=== PATIENT | female | born 1970 | race Two or more races ===

== ENCOUNTER 2016-08-10 13:10 | Emergency (ER) | payer OTHER, MEDICAID ==
--- NOTE | 2016-08-10 13:20 | UCPHY ---
H & P Time Seen by Provider: 08/10/16 13:20 Patient Type: Established HPI/ROS: HPI: 46-year-old female presents to urgent care with chief concern runny nose, cough, heaviness in her chest. Symptoms onset 3-4 days ago. Denies fever, chills, shortness of breath, abdominal pain, nausea, vomiting, diarrhea. No aggravating or alleviating factors. She is an asthmatic who is a current daily smoker. Mother has a history of heart disease. ROS:10 point review of systems is negative other than as stated in HPI Past Medical/Surgical History: Asthma, stomach band, current daily smoker Smoking Status: Current some day smoker Physical Exam: Vital signs stable, reviewed by me General: Awake, alert, calm, cooperative. No acute distress. Head: Atraumatic. EENT: Conjuctiva mildly injected. TMs intact, without redness or bulging. Nasal mucosa is erythematous with moderate clear discharge. Pharynx mildly erythematous. Uvula midline. No tonsillar abscess or exudates. No frontal or maxillary tenderness to percussion. Respiratory: Breathing unlabored. Lungs clear to auscultation bilaterally. No wheezing, no adventitious sounds. No respiratory distress. CV: Heart rate regular. S1-S2 present. No murmur. GI: Abdomen soft, nontender. Bowel sounds positive x4 quadrants. : Deferred Skin: Warm, dry, intact. No rashes present. Capillary refill brisk. Musculoskeletal: Full ROM all extremities. Neuro: Alert oriented x3. Strength equal in all 4 extremities. Constitutional: Initial Vital Signs Temperature (C) 37.2 C 08/10/16 13:25 Heart Rate 100 08/10/16 13:25 Respiratory Rate 18 08/10/16 13:25 Blood Pressure 101/84 H 08/10/16 13:25 O2 Sat (%) 97 08/10/16 13:25 O2 Delivery Mode Room Air Allergies/Adverse Reactions: Iodinated Contrast Media - Oral and [IV Dye, Iodine Containing] Allergy ( Verified 08/10/16 13:34) shellfish derived Allergy (Verified 08/10/16 13:34) Home Medications: Medication Instructions Recorded Albuterol Mdi Unknown Dose 03/25/12 Percocet Unknown Dose PRN 03/25/12 Implanon 08/27/13 Xyzal 03/23/14 Albuterol [Proventil Neb] 2.5 mg IH Q4 PRN #20 deyvial 07/25/15 Ipratropium/Albuterol [Duoneb] 3 ml IH TID #1 deyvial 07/25/15 Phentermine HCl 07/25/15 Qvar 80 (RX) 07/25/15 predniSONE 20 mg PO DAILY #8 tablet 07/25/15 Oseltamivir Phosphate [Tamiflu 75 75 mg PO BID #10 cap 08/10/16 mg (*)] predniSONE 20 mg PO DAILY #15 tablet 08/10/16 Medical Decision Making ED Course/Re-evaluation: 46-year-old female presents to urgent care with chief concern runny nose, cough , heaviness in her chest. She continues to smoke daily. She is using her albuterol inhaler as needed. Reports 3/10 anterior chest heaviness that onset the past 2 days. EKG today shows a sinus rhythm, rate 89, L AF B, probable LVH. No evidence of ischemia. This EKG has not changed since July 2013. Positive for influenza A Patient has had her stomach banded. She prefers not to use steroids if she does not need to. I have written a script for at home prednisone. Lungs are clear to auscultation. Oxygen saturation 97% on room air. She has been advised as long as she has no shortness of breath she may continue to use her inhaler as prescribed, and if she develops any shortness of breath she should begin prednisone and follow up promptly. Differential Diagnosis: URI, asthma, influenza, acute coronary syndrome - Data Points Laboratory Results: 08/10/16 13:40 Influenza Typ A,B (DFA) POSITIVE FOR FLU A H (NEGATIVE) Departure - Departure Disposition: Home, Routine, Self-Care Clinical Impression: Influenza A, Asthma Condition: Good Instructions: Influenza (ED) Additional Instructions: Plan: You have influenza a Use your albuterol inhaler 2 puffs every 4-6 hours for shortness of breath, wheezing. Begin Tamiflu twice daily for 5 days If symptoms worsen and you developed shortness of breath begin prednisone daily , you have been given a prescription Drink plenty of fluids. Rest. You may use over the counter cough and cold medicine for symptom relief. You may use Tylenol or Ibuprofen for fever and pain control. Use saline spray or saline irrigation to each nostril twice daily-morning and evening. For sore throat, gargle with warm salt water three times daily. Return to Urgent Care or ER if you develop chest pain, difficulty breathing, or difficulty swallowing. Follow up Friday for recheck without fail--tell the office you are an "ER follow up appointment when you call. Return here promptly for worsening symptoms such as facial/tooth pain, chest pain, shortness of breath, unremitting fever, nausea, vomiting, difficulty swallowing. Referrals: Natty Reich MD [Primary Care Provider] - As per Instructions Prescriptions: Oseltamivir Phosphate [Tamiflu 75 mg (*)] 75 mg PO BID #10 cap predniSONE 20 mg PO DAILY #15 tablet - PQRS PQRS Measurement: Not applicable
[2016-08-10 13:39] VITALS: BP 101/84; PULSE 100; RESP 18; TEMP 99; O2SAT 97
--- NOTE | 2016-08-10 13:45 | CPEKG ---
Heart Rate: 89 RR Interval: 674 P-R Interval: 148 QRSD Interval: 110 QT Interval: 372 QTC Interval: 453 P Marks: 41 QRS Marks: -64 T Wave Marks: 61 EKG Severity - ABNORMAL ECG - EKG Impression: SINUS RHYTHM EKG Impression: LEFT ANTERIOR FASCICULAR BLOCK EKG Impression: PROBABLE LEFT VENTRICULAR HYPERTROPHY Electronically Signed By: Klaudia Fang 10-Aug-2016 15:03:52
== END 2016-08-10 14:30 | disposition home or self-care (01) ==
LOC: CED 13:10
DX: J09.X2 Influenza due to identified novel influenza A virus with other respiratory manifestations (principal); J45.909 Unspecified asthma, uncomplicated; F17.200 Nicotine dependence, unspecified, uncomplicated
CPT/HCPCS: 93005; G0463; 87400-PO; 93010-PO; 99214-PO

== ENCOUNTER 2016-10-26 08:42 | Emergency (ER) | payer OTHER, MEDICAID ==
[2016-10-26] MEDS ORDERED: IPRATROPIUM/ALBUTEROL 3 ML DEYVIAL ONE (09:00)
--- NOTE | 2016-10-26 09:04 | UCPHY ---
H & P Time Seen by Provider: 10/26/16 09:01 Patient Type: Established HPI/ROS: Chief complaint. Cough HPI. 46-year-old female cough for 2 weeks. Began with sore throat after going out on 's Day. She has used up her albuterol inhaler. She feels she needs prednisone. She has a history of asthma. She does have some congestion. No fever. Some diffuse chest tightness. No sick contacts or recent travel. No unusual leg pain or swelling ROS Constitutional. no fever/chills, no weakness Eyes. no problems with vision ENT. Congestion Cardiovascular. no chest pain Respiratory. Cough Abdominal. no abdominal pain, no nausea/vomiting, no diarrhea . no problems urinating MS. no calf pain/swelling, no neck/back pain, no joint pain Skin. no rash Lymph. no swollen glands Neuro. no headache, no dizziness, no difficulty walking or with speech Past Medical/Surgical History: Asthma, lap band surgery, rheumatoid arthritis Social History: Single, daily smoker, no alcohol Smoking Status: Current some day smoker Physical Exam: General Appearance: Alert well-developed female mild distress vital signs are stable Eyes: Pupils equal and round no pallor or injection. ENT, pharynx slightly injected without exudate Respiratory: No retractions. End expiratory wheezing Cardiovascular: Regular rate and rhythm. Gastrointestinal: Abdomen is soft and nontender, no masses, bowel sounds normal. Neurological: Awake and alert, sensory and motor exams grossly normal. Skin: Warm and dry, no rashes. Musculoskeletal: Neck is supple nontender. Extremities symmetrical, full range of motion. Psychiatric: Patient is oriented X 3, there is no agitation. Constitutional: Initial Vital Signs Temperature (C) 37 C 10/26/16 09:03 Heart Rate 97 10/26/16 09:03 Respiratory Rate 16 10/26/16 09:03 Blood Pressure 113/69 10/26/16 09:03 O2 Sat (%) 92 10/26/16 09:03 O2 Delivery Mode Room Air Allergies/Adverse Reactions: Iodinated Contrast Media - Oral and [IV Dye, Iodine Containing] Allergy ( Verified 10/26/16 09:07) shellfish derived Allergy (Verified 10/26/16 09:07) Home Medications: Medication Instructions Recorded Albuterol 10/26/16 Albuterol Hfa Anes Only [Proair 2 puffs IH QID PRN #1 mdi 10/26/16 Hfa Icu (*)] Anuity 10/26/16 Benzonatate [Tessalon Pearles (RX)] 100 mg PO Q6-8PRN PRN #14 cap 10/26/16 Percocet 10/26/16 Xyzal 10/26/16 predniSONE 40 mg PO DAILY #10 tablet 10/26/16 Medical Decision Making Procedures: Gabriel murdock Patient is given prednisone 60 mg orally in the urgent care ED Course/Re-evaluation: Re-evaluation and patient is speaking in full sentences. Decreased wheezing dose still slight end-expiratory wheezing. Patient and I discussed treatment plan including criteria for return importance of follow-up and further evaluation. She expresses understanding and agreement Differential Diagnosis: This is likely viral infection. She does have a history of asthma and I think this is also a asthma exacerbation. She is out of her medications. No evidence for pneumonia Departure - Departure Disposition: Home, Routine, Self-Care Clinical Impression: Asthma exacerbation Condition: Good Instructions: Bronchospasm (ED) Additional Instructions: Drink plenty of fluids and stay hydrated. Prednisone for the next 5 days. Use her albuterol inhaler using 2 puffs every 4 hours as needed. Tessalon Perles for cough. Return for worsening symptoms. Recheck in 2-3 days if not improved Referrals: Natty Reich MD [Primary Care Provider] - 2-3 days, if not improved Prescriptions: Albuterol Hfa Anes Only [Proair Hfa Icu (*)] 2 puffs IH QID PRN #1 mdi PRN Reason: Short Of Breath/Dyspnea Benzonatate [Tessalon Pearles (RX)] 100 mg PO Q6-8PRN PRN #14 cap PRN Reason: Cough, Moderate predniSONE 40 mg PO DAILY #10 tablet - PQRS PQRS Measurement: 134: Depression screening and followup, PRIME MD-PHQ2 (12 years and older) Over the last 2 weeks, how often have you been bothered by any of the following problems? 1. Feeling down, depressed, or hopeless? 2. Little interest or pleasure in doing things? Patient answered no to both 1 and 2 130: Documentation of medications. Reviewed all patient medications, doses, route and frequency. 226: Do you smoke? Yes, counseled to stop.
[2016-10-26 09:07] VITALS: RESP 16
[2016-10-26] MEDS ORDERED: predniSONE 20 MG TAB PO ONE (09:16)
[2016-10-26] MEDS ORDERED: IPRATROPIUM/ALBUTEROL 3 ML DEYVIAL IH ONE (09:29)
[2016-10-26] MEDS ORDERED: ALBUTEROL INH PREPACK MDI TAKEHOME ONE ×2 (09:39→09:44)
[2016-10-26 09:47] VITALS: BP 101/75; PULSE 87; TEMP 98.2; O2SAT 95
== END 2016-10-26 09:49 | disposition home or self-care (01) ==
LOC: CED 08:42
DX: J45.901 Unspecified asthma with (acute) exacerbation (principal); Z72.0 Tobacco use
CPT/HCPCS: 99214-PO; G0463-PO

== ENCOUNTER → 2017-01-01 | Outpatient (CLI) | payer OTHER, MEDICAID | LOC: CIMAGING 08:43 | PROVIDERS: ATTEND Family Medicine | DX: Z12.31 Encounter for screening mammogram for malignant neoplasm of breast (principal) | CPT/HCPCS: G0202 ==

== ENCOUNTER → 2017-01-16 | Outpatient (CLI) | payer OTHER, MEDICAID | LOC: CIMAGING 12:49 | PROVIDERS: ATTEND Family Medicine | DX: R92.8 Other abnormal and inconclusive findings on diagnostic imaging of breast (principal) | CPT/HCPCS: G0206 ==

== ENCOUNTER → 2018-01-02 | Outpatient (CLI) | payer OTHER, MEDICAID | LOC: CIMAGING 08:29 | PROVIDERS: ATTEND Family Medicine | DX: Z12.31 Encounter for screening mammogram for malignant neoplasm of breast (principal) ==